=== PATIENT | female | born 1965 | race Hispanic/Latino ===

== ENCOUNTER 2021-01-06 11:47 | Emergency (ER) | payer BC ==
[~2021-01-06 11:47] MED LIST: Iopamidol 370 76% 100 ML VIAL ONE
[2021-01-06] MEDS ORDERED: Norepinephrine 4 MG/4 ML VIAL ONE (11:55)
[2021-01-06] MEDS ORDERED: Sodium Chloride 0.9% 250 ML 0 ML ONE (11:55)
[2021-01-06] MEDS ORDERED: Atropine Sulfate 1 mg/10 ml Syringe ONE (11:57)
--- NOTE | 2021-01-06 12:05 | CT ---
CT Brain WO Con: 01/06/2021 11:52 AM CLINICAL HISTORY: Stroke alert; right-sided weakness and loss of speech. IMAGING TECHNIQUE: Multiple CT images were obtained of the brain without IV contrast. COMPARISON: None. FINDINGS: BRAIN: Evidence of acute infarct: None. Evidence of chronic ischemic change:None. Evidence of intracranial hemorrhage: None. Evidence of brain volume loss:None. Evidence of midline shift: Third ventricle and septum pellucidum are midline. Ventricles: Normal. No hydrocephalus. SKULL: Intact. VISUALIZED PARANASAL SINUSES: Clear. MASTOID AIR CELLS: Clear. EXTRACRANIAL SOFT TISSUES: Normal. IMPRESSION: No acute intracranial abnormality. Findings called to Dr. Fountain at 12:01 PM on January 06, 2021.
[2021-01-06 12:07] LABS: INR-International Normal Ratio 1.1; Prothrombin Time 14.1 sec (12.0-14.7)
[2021-01-06 12:08] LABS: PTT 30.7 sec (22.9-36.1)
[2021-01-06 12:12] LABS: #Eosinphils 0.2 thou/uL (0.0-0.7); #Lymphocytes 1.7 thou/uL (1.20-3.40); #Monocytes 0.4 thou/uL (0.11-0.59); #Neutrophils 1.5 thou/uL (1.40-6.50); %Basophils 1.3 % (0.0-1.0); %Eosinophils 5.5 % (0.0-10.0); %Lymphocytes 44.2 % (21.0-51.0); %Monocytes 9.1 % (0.0-10.0); Hemoglobin 12.5 g/dL (12.0-16.0); Mean Corpuscular HGB CONC 32.7 g/dL (32.0-36.0); Mean Corpuscular Hemoglobin 31.3 pg (27.0-31.0); Mean Corpuscular Volume 95.6 fL (78.0-98.0); Mean Platelet Volume 7.6 fL (7.4-10.4); Platelet Count 182 thou/uL (130-400); RBC Distribution Width 13.2 % (11.5-14.5); Red Blood Cell (RBC) Count 3.99 mill/uL (4.20-5.40); White Blood Cell (WBC) Count 3.9 thou/uL (4.8-10.8)
[2021-01-06 12:20] LABS: ALT (SGPT) 40 U/L (8-55); AST (SGOT) 42 U/L (5-34); Albumin 4.4 g/dL (3.5-5.0); Alkaline Phosphatase 47 U/L (40-110); Anion Gap 18 mmol/L (10-20); BUN (Urea Nitrogen) 17 mg/dL (9.8-20.1); Bilirubin, Total 0.8 mg/dL (0.2-1.2); CK (CPK) 125 U/L (29-168); Calc. Creatinine Clearance 0 mL/min (70-130); Calcium 9.4 mg/dL (7.8-10.44); Carbon Dioxide 24 mmol/L (22-29); Chloride 101 mmol/L (98-107); Glucose 108 mg/dL (70-105); Potassium 3.7 mmol/L (3.5-5.1); Protein, Total 7.4 g/dL (6.0-8.3); Sodium 139 mmol/L (136-145)
--- NOTE | 2021-01-06 12:30 | RAD ---
Chest AP view INDICATION: Stroke alert COMPARISON: None FINDINGS: Lungs: The lung bases are excluded. The visualized lungs are clear. Cardiac silhouette: The cardiomediastinal silhouette appears within normal limits. Pulmonary vasculature: Normal Pleural spaces: No pleural effusion or pneumothorax is demonstrated. Upper abdomen: No abnormality seen. Osseous structures: No acute osseous abnormality. Additional findings: None. IMPRESSION: No acute cardiopulmonary abnormality. Some limitations to the exam.
[2021-01-06] MEDS ORDERED: Aspirin 325 MG TAB ONE (12:46)
--- NOTE | 2021-01-08 07:16 | CT ---
CTA of the head with IV contrast and 3-D reformatted imaging. CTA of the neck with IV contrast and 3-D reformatted imaging. INDICATION: Stroke alert; right-sided weakness and loss of speech COMPARISON: CT the brain without contrast dated January 06, 2021 FINDINGS: CTA OF THE HEAD WITH CONTRAST: CTA OF THE BRAIN: Right ICA: Patent. Right MCA: Patent. Right CLIFF: Patent. ACOM: Patent. Left ICA: Patent. Left MCA: There is thrombus present within the distal left M2 branch best seen on image 74 of the sa gittal series and image 69 and 70 of the axial series. This is also seen on image 39 of the coronal series. There is good collateralization involving the MCA branching of the left cerebral convexity. Left CLIFF: Patent. PCOMs: Patent. Vertebral arteries: Patent. Basilar Artery: Slightly diminutive but patent nurse plastics: Patent. Incidentals: None. CTA OF THE NECK WITH CONTRAST: Right CCA: Patent. Right ICA: Patent. Right Subclavian: Patent. Right Vertebral Artery: Patent. Left CCA: Patent. Left ICA: Patent. Left Subclavian: Patent. Left Vertebral Artery: Patent. Aerodigestive tract: Clear. Parotids/Submandibular/Thyroid glands: Normal. Lymph nodes: No pathologically enlarged lymph nodes. Lung Apices: Clear. Bones: There is mild cervical spondylosis. There is mild anterior translation of C4 on C5 which is l ikely degenerative. Incidentals: None. IMPRESSION: 1. Occlusive thrombus seen within the distal left M2 branch. Findings called to Dr. Fountain at 12:20 PM on November 05, 2021. 2. No additional hemodynamically significant stenosis demonstrated.
== END 2021-01-06 13:08 | disposition short-term general hospital (02) ==
LOC: NAV ERS 11:47
DX: I63.9 Cerebral infarction, unspecified (principal); R47.01 Aphasia; E06.3 Autoimmune thyroiditis
CPT/HCPCS: 70450; 70496; 70498; 71045; 80053; 82550; 84484; 85025; 85610; 85730; 93005; 96374; J0461; J2997; J7050; Q9967